=== PATIENT | female | born 1945 | race Caucasian/White ===

== ENCOUNTER 2024-12-15 00:10 | Day surgery (SDC) | payer MEDICARE ==
[~2024-12-15 00:10] MED LIST: ATEN25 PO; ATOR10 PO; CALCIUM CITRAT1 EAC4 PO; CETI5 PO; CHOL10002 PO; Ferrous Sulfat325 M2 PO; GLUCOSAMINE CH1 EAC3 PO; Garlic1000 MG PO; LOSA50 PO; MULTI VITAMIN1 EACH PO; OMEG1CAP30 PO; OMEPRAZOLE MAGN20 MG PO; OXYB5 PO; Super B Comple1 EAC2 PO
[2024-12-15 11:11] VITALS: BP 148/65
== END 2024-12-15 12:02 | disposition home or self-care (01) ==
LOC: ATC 00:10
DX: M81.0 Age-related osteoporosis without current pathological fracture (principal); I10 Essential (primary) hypertension; R73.03 Prediabetes; E66.9 Obesity, unspecified; K21.9 Gastro-esophageal reflux disease without esophagitis; E78.2 Mixed hyperlipidemia; Z88.8 Allergy status to other drugs, medicaments and biological substances; Z79.899 Other long term (current) drug therapy; Z87.891 Personal history of nicotine dependence
CPT/HCPCS: 96374; J3489